=== PATIENT | male | born 2005 | race Two or more races ===

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

== ENCOUNTER 2024-06-19 17:42 | Emergency (ER) | payer SELFPAY ==
[2024-06-19 18:39] VITALS: BP 128/84; PULSE 74
== END 2024-06-19 18:35 | disposition home or self-care (01) ==
LOC: JD.ED 17:42
DX: S61.213A Laceration without foreign body of left middle finger without damage to nail, initial encounter (principal); W26.0XXA Contact with knife, initial encounter
CPT/HCPCS: 12001; 99282